=== PATIENT | female | born 1970 | race African-American/Black ===

== ENCOUNTER 2017-08-20 10:50 | Emergency (ER) | payer MEDICAID, OTHER ==
[~2017-08-20] VITALS: Ht 180.3 cm; Wt 109.8 kg
[~2017-08-20 10:50] MED LIST: ASPIR 8181 MG ORAL; ATENOLOL25 MG ORAL; ATORVASTATIN CA10 MG ORAL; B COMPLEX1 EACH ORAL; BENAZEPRIL HCL10 MG ORAL; CHLORTHALIDONE25 MG ORAL; CLONIDINE HCL0.1 MG PO; NAPROXEN250 MG ORAL; NORCO 5-325 TA1 EACH ORAL; RANITIDINE HCL150 MG ORAL; TRAMADOL HCL50 MG ORAL; UNOBMED
[2017-08-20] MEDS ORDERED: NORVASC2.5 MG ORAL (11:01)
[2017-08-20] MEDS ORDERED: CATAPRES0.1 MG ORAL (11:01)
[2017-08-20] MEDS ORDERED: ATENOLOL25 MG ORAL (11:01)
--- NOTE | 2017-08-20 11:01 | Emergency Room Report ---
History of Present Illness General Chief Complaint: Dyspnea/Respdistress Source: Patient Present Illness HPI 47-year-old female with distant history of pediatric asthma presents with chest tightness, shortness of breath for 2-3 days in the setting of recent URI symptoms including runny nose, nasal congestion. Patient states she hasn't had asthma attack in many years, does not have albuterol or other asthma treatment currently. Denies associated fever or chills, chest pain, abdominal pain, nausea or vomiting or sick contacts. Allergies: Coded Allergies: No Known Allergies (Unverified , 11/11/13) Patient History Past Medical History: asthma Past Surgical History: none Pertinent Family History: none Social History: Denies: smoking, alcohol use, drug use Last Menstrual Period: Post Now: No Immunizations: UTD Reviewed Nursing Documentation: PMH: Agreed, PSxH: Agreed Nursing Documentation-PMH Past Medical History: No History, Except For Hx Hypertension: Yes Review of Systems All Other Systems: negative except mentioned in HPI Physical Exam Vital Signs Date Time Temp Pulse Resp B/P (MAP) Pulse Ox O2 Delivery O2 Flow Rate FiO2 08/20/17 10:54 98.3 81 22 95 Room Air 98.2 Sp02 EP Interpretation: reviewed, normal General Appearance: normal inspection, well appearing, no apparent distress, alert, GCS 15, non-toxic Head: normocephalic, atraumatic Eyes: bilateral eye PERRL, bilateral eye EOMI ENT: normal ENT inspection, hearing grossly normal, normal pharynx, no angioedema, normal voice, TMs + canals normal, uvula midline, moist mucus membranes Neck: normal inspection, full range of motion, supple, thyroid normal, no meningismus, no bony tend Respiratory: normal inspection, lungs clear, normal breath sounds, no rhonchi, no respiratory distress, no retraction, no accessory muscle use, accessory muscle use, speaking full sentences, wheezing Cardiovascular #1: regular rate, rhythm, no edema, no JVD, normal capillary refill Gastrointestinal: normal inspection, normal bowel sounds, non tender, soft, no mass, no peritonitis, non-distended, no guarding, no hernia, no pulsatile mass Genitourinary: no CVA tenderness Musculoskeletal: normal inspection, back normal, normal range of motion, no calf tenderness, pelvis stable, Gael's Sign negative Neurologic: normal inspection, alert, oriented x3, responsive, 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, motor strength/tone normal, cerebellar normal, normal gait, speech normal Psychiatric: normal inspection, judgement/insight normal, mood/affect normal, no suicidal/homicidal ideation, no delusions Skin: normal inspection, normal color, no rash Lymphatic: normal inspection, no adenopathy Medical Decision Making Diagnostic Impression: Primary Impression: Dyspnea Qualified Codes: R06.00 - Dyspnea, unspecified Additional Impression: Asthma Qualified Codes: J45.21 - Mild intermittent asthma with (acute) exacerbation ER Course Vital signs stable, afebrile Patient has wheezing, using accessory muscles however speaking full sentences on exam acute asthma exacerbation due to recent URI symptoms, viral illness. Improved with albuterol 2 and prednisone low suspicion for pneumonia given afebrile, no rhonchi on exam ER course: Patient has remained stable during ED stay. Disposition: Patient is to be discharged to home. Prescriptions given are albuterol, prednisone Patient is instructed to follow up with their primary care doctor within 5 days. Strict return precautions discussed with patient such as fever, chills, worsening/severe pain, nausea, vomiting, which may indicate severe illness. Patient verbalizes understanding and agrees with plan. Please note that this Emergency Department Report was dictated using [employer] technology software, occasionally this can lead to erroneous entry secondary to interpretation by the dictation equipment Last Vital Signs Date Time Temp Pulse Resp B/P (MAP) Pulse Ox O2 Delivery O2 Flow Rate FiO2 08/20/17 10:54 98.3 81 22 95 Room Air 98.2 Status: improved Disposition: HOME, SELF-CARE Scripts Prednisone* (PREDNISONE*) 20 Mg Tablet 40 MG ORAL DAILY for 4 Days, #8 TAB Prov: JOSÉ ANTONIO MAGAÑA M.D. 08/20/17 Albuterol Sulfate (VENTOLIN HFA) 18 Gm Hfa.aer.ad 1 PUFF INH EVERY 6 HOURS for cough, chest tightness, #18 GM 0 Refills Prov: JOSÉ ANTONIO MAGAÑA M.D. 08/20/17 JOSÉ ANTONIO MAGAÑA M.D. Aug 20, 2017 11:01
[2017-08-20 11:07] VITALS: BP 190/103
[2017-08-20] MEDS ORDERED: Albuterol ud Inhalation HHN ONE (11:15)
[2017-08-20] MEDS ORDERED: VENTOLIN HFA18 GM INH (11:59)
[2017-08-20] MEDS ORDERED: PREDNISONE20 MG ORAL (11:59)
[2017-08-20 12:14] VITALS: BP 191/95
== END 2017-08-20 12:24 | disposition home or self-care (01) ==
LOC: EMR 11:28
DX: J45.901 Unspecified asthma with (acute) exacerbation (principal); I10 Essential (primary) hypertension
CPT/HCPCS: 94640; 99284; J7512